=== PATIENT | male | born 1960 | race Caucasian/White ===

== ENCOUNTER → 2021-03-06 | Outpatient (CLI) | payer BC, OTHER ==
[~2021-03-06] VITALS: Ht 177.8 cm; Wt 72.6 kg
[~2021-03-06] MED LIST: MEDROLDOSEPACK PO; NABUMETONE 500500 M2 PO; NEURONTIN 300M300 M2 PO; TYLENOL325 M1 PO; ZYRTEC10 M5 PO
--- NOTE | ~2021-03-06 | HPC ---
[facility] [place] [address] PAIN MANAGEMENT CONSULTATION Name: ISA TAYLOR Room #: REG Karina EstradaÁngelAlexis.#: [id number] Admission: 03/06/21 Attend Phys: Grady Escamilla DO Discharge: Date of : 62 Report #: [id number] THIS REPORT FOR: cc: Adi Jones Steven F. DO Johnson, James E. DO ~ DOC #: [id number] cc: MD Grady Cooley DO DATE OF SERVICE: 03/06/2021 REFERRING PHYSICIAN: Dr. Adi Jones. CHIEF COMPLAINT: Low back pain, left lower extremity pain. HISTORY OF PRESENT ILLNESS: As you know, the patient is a pleasant 60-year-old male with a 1-month history of progressively worsening low back pain and left lateral thigh pain. The patient denies any specific injury or trauma. He does recall a longstanding history of odd numbness and tingling in that left lateral thigh that would be present for a couple of days, then resolved spontaneously. He cannot recall any specific injury or trauma that even lead to the symptoms that developed 2 years ago. He states he was in his normal state of health about 1 month ago when he began to experience low back, left buttock, and posterolateral thigh symptoms that did not resolve with [id number] treatment, rest and relaxation. Due to lack of improvement with conservative treatment, the patient was sent for x-ray imaging. X-ray imaging shows normal findings for a 60-year-old male. He continues to complain of pain and was then sent for MRI. The MRI imaging showed some changes at the L4-L5 and L5-S1 level, which prompted referral to our clinic. The patient reports today his pain is steady. He describes the pain as burning, stabbing and intermittent numbness and tingling. Places current pain score 6/10, daily average is 6/10, worst pain has been a 7/10. The patient states pain is constant. It is not alleviated with any treatment today. He is not aware of any specific activity that increases symptoms nor any activity that decreases symptoms. He does indicate that the use of marijuana tends to improve symptoms as does to some degree lying on his back. He has been referred to our service, discussed treatment options for suspected lumbar radiculopathy. PAST MEDICAL HISTORY: Seasonal allergies. PAST SURGICAL HISTORY: Reconstructive plastic surgery in 1992. SOCIAL HISTORY: The patient smokes 3/4 of a pack tobacco per day, has done so for 40 years. Denies IV or illicit drug use. Admits to 6 alcoholic beverages per week. 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 He is not in litigation in regards to pain. He is unaccompanied at today's visit. REVIEW OF SYSTEMS: Only positive for left buttock and posterolateral thigh pain. All other review of systems negative per 12-point review of systems other than those listed in history of present illness. Pain impact score 29 of 70 indicating mild to moderate interference in daily activities secondary to pain. ALLERGIES: No known drug allergies. CURRENT MEDICATIONS: Zyrtec 10 mg once a day, Tylenol 325 mg 4 times a day p.r.n. IMAGING: X-ray of the lumbar spine obtained 02/11/2021 shows L1-L2, L2-L3, L3-L4 and L4-L5 essentially normal with only mild intervertebral disk space changes consistent with his age of 60. Also, some mild facet arthropathy, again consistent with his age of 60. L5-S1 shows mild intervertebral disk changes and mild facet arthropathy consistent with his age. No lateralizing features. No bony abnormalities. MRI of the lumbar spine obtained 02/26/2021 shows L1-L2, L2-L3, L3-L4 unremarkable. L4-L5 shows mild disk desiccation, small posterior annular tear with associated very small left subarticular disk protrusion, annular tear greatest signal abnormality occurs immediately adjacent to the transversing left L5 nerve root. Facets are well preserved. No central canal stenosis or foraminal stenosis. L5-S1 disk desiccation is evident, posterior annular tear with associated small disk protrusion. No foraminal stenosis, no lateral recess stenosis or central canal stenosis. Facets are well preserved. PHYSICAL EXAMINATION: VITAL SIGNS: Blood pressure 133/84, pulse 58, respiratory rate 16 and unlabored. The patient is 95 percent on room air. Height 5 feet 10 inches tall, weight 160 pounds, BMI calculated 23.0. GENERAL: Well-developed, well-nourished, well-hydrated 60-year-old male appearing his stated age, pain today rated at 6/10. HEENT: He is normocephalic, atraumatic. Pupils equal, round and responsive. The patient's extraocular muscles are intact. Speech is fluent. He is wearing a mask in compliance with COVID-19 regulations. LUNGS: Clear, but prolonged expiratory phase is noted with auscultation. CARDIOVASCULAR: Regular. No appreciable gallop, no rub. ABDOMEN: Soft, nontender. EXTREMITIES: Show no clubbing, no cyanosis. No appreciable edema. MUSCULOSKELETAL: Lower extremity strength equal and symmetrical 5/5. Slight giveaway strength noted with hip flexion, knee extension on the left compared to the right due to pain generation. Seated straight leg raising positive on the left. Supine straight leg raising positive on the left. Babar's test is [facility] [address] [place] [address] PAIN MANAGEMENT CONSULTATION Name: ISA TAYLOR Room #: REG [facility].#: [id number] Admission: 03/06/21 Attend Phys: Grady Escamilla DO Discharge: Date of : 62 Report #: [id number] negative. Modified Gaenslen's positive for axial low back pain. Ankle clonus negative. Babinski is negative. Deep tendon reflexes 2+/4 at patella and Achilles bilaterally. Muscle bulk and tone is symmetrical in lower extremities. Tactile sensations are equal and symmetrical at L5 through S1 dermatomes. Lumbar provocation testing is met with slight increase in pain on the left, negative right. ASSESSMENT: 1. Symptomatic lumbar radiculopathy. 2. Annular tear of the L4-L5 level leading to radicular symptoms. 3. Mild facet arthropathy of lumbar spine. PLAN: 1. Based on today's physical exam and the history the patient has provided, the description the patient uses in regards to pain, likely source of the patient's symptoms is the annular tear at the L4-L5 level with effects upon the traversing L5 nerve root on the left. The findings at the L5-S1 level are not consistent with the patient's symptoms nor do they cause any significant edema or concerning mechanical compressive forces. We discussed with the patient the findings of his MRI today. We then discussed the findings on physical exam and correlated those findings to the imaging study. After this discussion, we then conversed about the treatment options and following was discussed with the patient today. We discussed physical therapy, stretching exercises and core strengthening as a treatment option. The patient states he is doing home exercise and stretching, but has not noted much in the way of improvement. We discussed medication management, adding a Medrol Dosepak as an initial treatment and following up with nonsteroidal anti-inflammatories consistently, this in conjunction with neuropathic pain medications such as amitriptyline, nortriptyline or Cymbalta could improve symptoms and provide analgesic benefit. We discussed lumbar epidural injection under fluoroscopic guidance for which the patient was referred to our clinic. We also discussed surgical options, though given the minor findings of his imaging, I do not feel he is a candidate for surgery. After reviewing the risks and benefits of all the proposed treatment options, the patient chose to make adjustments in medication management. 2. The patient will be started on gabapentin 300 mg dose 1 tab p.o. at bedtime for 3 nights. If no improvement in symptoms, no side effects of sleepiness, disorientation, confusion, or mental slowing, then increase to 600 mg p.o. at bedtime. Continue for another 3 nights. If no improvement in symptoms, no side effects, then escalate dose to 900 mg p.o. at bedtime. We have provided the patient with #90 tablets of 300 mg dose, sent to his local pharmacy with 2 refills. The patient was advised anytime during the titration, he notes improvement in symptoms. He is stabilized at that dose, no further escalation. If he is having side effects of medication to reduce to the dose prior, continue the medication for another 3 days, then reattempt escalation if pain is not well [address] [address] PAIN MANAGEMENT CONSULTATION Name: ISA TAYLOR Room #: REG EDITH Pearce#: [id number] Admission: 03/06/21 Attend Phys: Grady Escamilla DO Discharge: Date of : 62 Report #: [id number] controlled. 3. The patient was provided a prescription for Medrol Dosepak. He will take this as directed. I have advised the patient to begin that medication either today before noon or begin tomorrow, take the medication as directed. Prescription was provided to the patient in written form. 4. The patient will be started on nabumetone 500 mg dose 1 tab p.o. t.i.d. This will be his baseline pain medication. He is to watch for any dyspepsia, worsening of blood pressure, lower extremity edema with use of the medication. He was given #90 tablets with 2 refills, 3 months' worth of medication. The patient was advised as his pain improves, begin weaning off the medication entirely if at all possible. 5. We will see the patient back in followup visit in 3 weeks. At that time, he will have completed his Medrol Dosepak, will be on a stable dose of gabapentin and will be utilizing the nabumetone consistently. We will review efficacy at that point. If at that time, his symptoms have not improved, we will discuss with the patient the possibility of undergoing a lumbar epidural injection. The patient is agreeable with this plan. 6. We wish to thank Dr. Jones for the referral of the patient to our clinic. We will keep you apprised of his response to treatment as we address lumbar radicular symptoms secondary to an annular tear at the L4-L5 level. Again, we wish to thank you for the opportunity to see the patient in consultation. Grady Escamilla DO JEJ/MUK By: [id number] Grady Escamilla DO /nt
[2021-03-06 09:07] VITALS: BP 133/84
--- NOTE | 2021-03-06 09:27 | NUR ---
Pain Clinic Assessment: 1. History of Osteoarthritis: Not Applicable History of Rheumatoid Arthritis: Not Applicable 2. Height: 5 ft. 10 in. 177.8 cm. Weight: 160.0 lb. oz. 72.576 kg. Patient's BMI: 23.0 3. Vital Signs: BP: 133/84 Pulse: 58 Resp: 16 Temp: 02 Sat: 95 ECG Mon: 4. Pain Intensity: 6 5. Fall Risk: Dizziness: N Needs help standing or walking: N Fallen in the last 3 months: N Fall risk comments: 6. Patient on Blood Thinner: None 7. History of Hypertension: N 8. Opioid Therapy greater than 6 weeks: N Opiate Contract Signed: 9. Risk Assessment Tool Provided: 10. Functional Assessment Tool: 11. Recreational Drug Use: Current within past 3 mos Drug Type: MARIJUANIA Tobacco Use: Current Every Day Smoker Tobacco Type: Cigarettes Amount or Packs/day: 3/4 How Many Years: 40 Alcohol Use: Yes Frequency: Weekly Quant: 6
== END ==
LOC: PAIN 07:06
PROVIDERS: ATTEND Anesthesiology Pain Medicine
DX: S33.5XXA Sprain of ligaments of lumbar spine, initial encounter (principal); M54.16 Radiculopathy, lumbar region; Z79.891 Long term (current) use of opiate analgesic; Z79.899 Other long term (current) drug therapy; X58.XXXA Exposure to other specified factors, initial encounter; Y93.89 Activity, other specified; Y92.89 Other specified places as the place of occurrence of the external cause; Y99.8 Other external cause status

== ENCOUNTER → 2021-04-02 | Outpatient (CLI) | payer BC, OTHER ==
[~2021-04-02] VITALS: Ht 177.8 cm; Wt 73.3 kg
[2021-04-02 08:47] VITALS: BP 118/72
--- NOTE | 2021-04-05 12:39 | HPC ---
[facility] [place] [address] PAIN MANAGEMENT CONSULTATION Name: ISA TAYLOR Room #: REG EDITH Portia#: [id number] Admission: 04/02/21 Attend Phys: Grady Escamilla DO Discharge: Date of : 62 Report #: [id number] THIS REPORT FOR: cc: Adi Jones Steven F. DO Johnson, James E. DO ~ DOC #: [id number] cc: MD Grady Cooley DO DATE OF SERVICE: 04/02/2021 CHIEF COMPLAINT: Low back pain, left lower extremity pain with paresthesias. HISTORY OF PRESENT ILLNESS: As you know, the patient is a pleasant 60-year-old male with 1-month history of progressively worsening low back pain and left lower lateral thigh pain. We saw the patient in consultation per the request of Dr. Jones on 03/06/2021, diagnosed with a lumbar radiculopathy secondary to an annular tear at the L4-L5 and L5-S1 levels. He and I discussed treatment options. They started him on medication management. We have achieved authorization for the patient to undergo the first in a series of lumbar epidural injections per the request of Dr. Jones in hopes of improving his pain secondary to the inflammatory process related to the annular tears at L4-L5 and L5-S1. The patient returns today in followup visit to undergo that epidural injection. He is placing current pain score 4/10. He has had no changes in his medication management since our last visit. There is no changes in his medical history nor is he started any medication that would preclude him from undergoing the epidural injection today. He is placing current pain score 4/10, describes the pain as burning, stabbing, steady and constant. ALLERGIES: No known drug allergies. CURRENT MEDICATIONS: Zyrtec 10 mg once a day, Tylenol 325 mg 4 times a day, gabapentin 900 mg p.o. at bedtime. SOCIAL HISTORY: The patient smokes 3/4 pack tobacco per day, has done so for about 40 years. Denies IV or illicit drug use. Admits to 6 alcoholic beverages per week. He is a used building materials yard worker, working, not receiving workmen's compensation, unaccompanied today. IMAGING: No new imaging is available. PHYSICAL EXAMINATION: VITAL SIGNS: Blood pressure 118/72, pulse 62, respiratory rate 14 and unlabored. The patient is 96% on room air. Height 5 feet 10 inches tall, weight 161.6 pounds, BMI calculated 23.2. GENERAL: Well-developed, well-nourished, well-hydrated 60-[place] [address] PAIN MANAGEMENT CONSULTATION Name: ISA TAYLOR Room #: REG CLKarina Pearce#: [id number] Admission: 04/02/21 Attend Phys: Grady Escamilla DO Discharge: Date of : 62 Report #: [id number] appears his stated age, pain is rated today at around 4/10. HEENT: Normocephalic, atraumatic. Pupils are round. He is wearing a mask in compliance with COVID-19 regulations. EXTREMITIES: Show no clubbing, no cyanosis, no edema. MUSCULOSKELETAL: Lower extremity strength remains symmetrical again today 5/5. Slight giveaway strength noted again with hip flexion, knee extension on the left due to pain similar to prior evaluation 03/06/2021. Seated straight leg raising positive on the left. Supine straight leg raising positive on the left. Babar's test is negative. Modified Gaenslen's positive for axial low back pain. ASSESSMENT: 1. Symptomatic lumbar radiculopathy. 2. Annular tear at the L4-L5 disk. 3. Annular tear of the L5-S1 disk. 4. Mild facet arthropathy. 5. Chronic intractable pain. PLAN: 1. The patient returns today in followup visit where we have reviewed his imaging studies, he brought with him today. We then discussed again the treatment options based on the annular tears noted at the L4-L5 and L5-S1. Ultimately, the patient chose to undergo the epidural injection under fluoroscopic guidance. We have achieved authorization for the patient to undergo that procedure today. He returns to undergo epidural injection with pain score of 4/10. The patient has been advised risks and benefits of a lumbar epidural injection. These risks include, but are not necessarily limited to; bleeding, bruising, infection, worsening pain, no relief of pain, temporary or permanent muscle weakness, temporary or permanent nerve damage, possible paralysis post-dural puncture headache and . The patient states understood and wished to proceed. 2. No medication changes made at today's visit. The patient will continue his nabumetone 500 mg 3 times a day and his gabapentin 300 mg 3 tabs p.o. at bedtime. I did renew the gabapentin for him, so he has 1 month further of medication. We recommend he continue these therapies. 3. We plan to see the patient back in followup visit in 31 days. At that time, we will review the efficacy of today's epidural injection in terms next in the series of epidural injections would be recommended. PROCEDURE NOTE DESCRIPTION OF PROCEDURE: L5-S1 interlaminar epidural steroid injection under fluoroscopic guidance. This is the first procedure of the first series that the patient is undergoing. [facility] [address] [place] [address] PAIN MANAGEMENT CONSULTATION Name: ISA TAYLOR Room #: REG EDITH Pearce#: [id number] Admission: 04/02/21 Attend Phys: Grady Escamilla DO Discharge: Date of : 62 Report #: [id number] After obtaining written consent, the patient was taken back to the fluoroscopy suite, placed in a prone position with pillow under the abdomen to decrease lumbar lordosis. The skin overlying the lumbosacral area was then prepped and draped in aseptic fashion. The L5-S1 vertebral interspace was then identified by AP fluoroscopy. The skin and subcutaneous tissue overlying the target site of injection was anesthetized with 3 ml 1% lidocaine. A 20-gauge 3-1/2 inch Tuohy needle was then advanced under fluoroscopic guidance towards the epidural space using a midline approach. The epidural space was identified using loss of resistance to air technique. After negative aspiration for heme or cerebrospinal fluid, a total of 1 ml of omnipaque was injected. A lumbar epidurogram was confirmed using both AP and lateral fluoroscopy. After negative aspiration for heme or cerebrospinal fluid, 5 ml of solution containing 2 ml 40 mg per ml, 80 mg total triamcinolone along with 3 ml lidocaine 1% was injected in increments. Contrast spread was noted posterior epidural space. The needle was then retracted approximately half way and needle tract flushed with 1 ml of 1% lidocaine. Needle was then removed. There were no apparent sensory or motor deficits in the lower extremity following the procedure. A sterile bandage was placed over the injection site. The heart rate, pulse, oximetry and blood pressure were continuously monitored after the procedure. There were no apparent complications. The patient tolerated the procedure well and was carefully escorted to the recovery room in stable condition. There were no apparent complications. After meeting discharge criteria, the patient was then discharged home. Grady Escamilla DO JEJ/AMI <ELECTRONICALLY SIGNED> By: Grady Escamilla DO 04/05/21 [id number] Grady Escamilla DO /nt
== END | disposition home or self-care (01) ==
LOC: PAIN 06:42
PROVIDERS: ATTEND Anesthesiology Pain Medicine
DX: M47.26 Other spondylosis with radiculopathy, lumbar region (principal); M51.86 Other intervertebral disc disorders, lumbar region; G89.29 Other chronic pain; F17.210 Nicotine dependence, cigarettes, uncomplicated; Z98.890 Other specified postprocedural states; Z79.899 Other long term (current) drug therapy